=== PATIENT | male | born 1990 | race Caucasian/White ===

== ENCOUNTER → 2018-03-18 11:09 | Outpatient (CLI) | payer OTHER, SELFPAY ==
--- NOTE | 2018-03-18 11:16 | CT_ITS ---
CT abdomen pelvis wo con INDICATION: : LEFT SIDED LOW BACK PAIN ORDERING PHYSICIAN: John Donaldson MD PATIENT AGE: 28 years COMPARISON: June 2014 CT abdomen TECHNIQUE: No oral nor IV contrast utilized Axial images obtained with sagittal and coronal reformats. All CT scans at the facility use one or more dose reduction, viz: automated exposure control, ma/kV adjustment per patient size (including targeted exams where dose is matched to indication, i.e. head), or iterative reconstruction technique. FINDINGS: Lung bases. Clear No acute findings. Heart normal size. Abdomen/pelvis. Lack of oral and IV contrast decreases sensitivity. Liver. A 2.2 cm diameter area at medial right lobe, just superior to the gallbladder fossa is again noted & has not changed significantly since 2013. It measures soft tissue density and is not a cyst. Perhaps 2 mm wider on coronal view overall fairly stable on other views overall reflecting its indolent/benign nature. Possible hemangioma in this younger age patient.. Postcontrast CT imaging protocol could fully confirm if so desired but its fairly stable appearance 2013 is reassuring. Ultrasound may be less definitive but can be supportive of hemangioma diagnosis as well Otherwise the liver is unremarkable on this noncontrast study. The gallbladder shows no gallstones. No biliary ductal dilatation. Pancreas unremarkable but stable. Adrenals unremarkable. tract. Again barely stable pattern of punctate nonobstructive calculi in both kidneys. Right kidney: Largest 6 mm x 3 mm mm calculus upper pole calyx.. Other small roughly 3 mm or less calculi upper pole and lower pole. Cluster of 3 tiny calculi lower pole Left kidney. Several small less than 3 mm punctate calculi involving the upper, mid and lower portion left kidney. No ureteral dilatation Pelvis. Bladder unremarkable. Slightly generous prostate measuring 5.1 cm transverse. Seminal vesicles unremarkable. No pelvic adenopathy or mass or fluid. GI tract. No evidence of appendicitis. Generous stool at the right colon with moderate gaseous transverse colon with minimal stool left colon. Upper normal wall thickness of the descending colon most likely reflects lack of distention Small bowel. Normal caliber unremarkable. No mesenteric or retroperitoneal adenopathy.. Osseous structures. Unremarkable except to note that there is a transitional vertebra at lumbosacral only four nonrib-bearing lumbar vertebra above this IMPRESSION 1. numerous nonobstructive punctate calculi are again seen in both kidneys largest is a 6 mm x 3 mm calculus at upper pole right kidney again seen but with numerous others are smaller measuring roughly 3 mm or less . These are not changed significantly since 2013 2. No acute findings in the abdomen or pelvis . No current obstructive uropathy evident. No findings to account for the left lower quadrant pain 3. The 3.2 cm wide x 2.2 cm low-density area at the gallbladder just above the gallbladder fossa. The fairly stable in overall size, only Perhaps incrementally wider on coronal view. Relative stable character reflects its benign/indolent character. Possible hemangioma. .
== END ==
PROVIDERS: PCP Internal Medicine Adolescent Medicine; Visit Provider Internal Medicine Adolescent Medicine
DX: M54.5 Low back pain (principal)
CPT/HCPCS: 74176

== ENCOUNTER → 2018-05-07 11:38 | Outpatient (CLI) | payer OTHER, SELFPAY ==
--- NOTE | 2018-05-07 11:41 | XR_ITS ---
XR KUB HISTORY: ITS.REASON: Kidney Stones ORDERING PHYSICIAN: Marcial Garcia MD PATIENT AGE: 28 years COMPARISON: 03/18/2018 ct scan FINDINGS: The bowel gas pattern is unremarkable. No obvious obstruction.. Previous CT scan demonstrated multiple bilateral renal calculi. Stool overlies both kidneys and may obscure underlying renal calculi. A 2 mm density is present in the central aspect of the left kidney medially may be due to small stone. No obvious ureteral calculi. No acute bony anomalies. There is a mild amount retained colonic feces. IMPRESSION: Kidneys are of scattered by overlying stool. Suspect at least one small stone in the mid aspect of the left kidney
[2018-05-17 11:23] LABS: Calcium phosphate 10 % (.)
[2018-05-17 18:36] LABS: Specimen Type Comment: (.)
== END ==
PROVIDERS: PCP Internal Medicine Adolescent Medicine; Visit Provider Urology
DX: N20.0 Calculus of kidney (principal)
CPT/HCPCS: 74018; 82370

== ENCOUNTER → 2018-08-06 14:21 | Outpatient (CLI) | payer OTHER, SELFPAY ==
--- NOTE | 2018-08-06 14:23 | XR_ITS ---
XR KUB HISTORY: ITS.REASON: KIDNEY STONES ORDERING PHYSICIAN: Marcial Garcia MD PATIENT AGE: 28 years COMPARISON: 03/18/2018 FINDINGS: Faint calculi are present over the lower pole the right kidney in the mid polar region of the left kidney. No ureteral calculi . No acute bony anomalies. IMPRESSION: Small bilateral renal calculi
== END ==
PROVIDERS: PCP Internal Medicine Adolescent Medicine; Visit Provider Urology
DX: N20.0 Calculus of kidney (principal)
CPT/HCPCS: 74018

== ENCOUNTER 2019-01-14 14:35 | Outpatient (CLI) | payer OTHER, SELFPAY ==
[2019-01-14 14:50] VITALS: BMI 24.3
== END 2019-01-14 14:52 | disposition home or self-care (01) ==
LOC: UTC.OUT 14:36
PROVIDERS: Visit Provider Nurse Practitioner Family
DX: Z23 Encounter for immunization (principal)

== ENCOUNTER → 2021-04-05 10:47 | Outpatient (CLI) | payer OTHER, SELFPAY ==
[2021-04-05 10:59] LABS: Coronavirus 19, PCR Not Detected (NotDetected); Influenza A, PCR Not Detected (NotDetected); Influenza B, PCR Not Detected (NotDetected)
== END ==
PROVIDERS: PCP Internal Medicine Adolescent Medicine; Visit Provider Nurse Practitioner Family
DX: Z20.822 Contact with and (suspected) exposure to COVID-19 (principal)
CPT/HCPCS: U0003

== ENCOUNTER 2021-08-27 19:45 | Emergency (ER) | payer OTHER, SELFPAY ==
[2021-08-27 19:57] VITALS: BP 133/96; PULSE 84; RESP 18; TEMP 36.6; O2SAT 98; BMI 25.7
--- NOTE | 2021-08-27 20:00 | HMH.EDUTC ---
[facility] [place] Clinical Impression: Exposure to COVID-19 virus Disposition: Home, Self-Care Condition on Discharge: Good Instructions: DI for COVID-19 (Suspected or Confirmed ), Preventing the Spread of Coronavirus Discharge Instructions Additional Instructions: Drink plenty of fluids. Take tylenol for pain or fever. Return if you begin to have difficulty breathing. Follow up with your regular doctor. GO TO THE ER FOR ANY WORSENING SYMPTOMS Quarantine until you know the results of your covid-19 test. Notify your school or workplace of your results and follow their instructions regarding return to work/school. Referrals: John Donaldson MD [Primary Care Provider] - Time of Disposition: 20:01 Medical Decision Making - Medical Records Medical records reviewed: No: I reviewed the patient's medical records. - Brennan Inquiry Pt receiving controlled substance: No Vital Signs: 08/27/21 19:57 08/27/21 20:05 Temperature 97.9 F 97.9 F Temperature Source Oral Pulse Rate 84 Pulse Rate [Left] 84 Respiratory Rate 18 18 Blood Pressure 133/96 H Blood Pressure [Right Arm] 133/96 H Blood Pressure Mean [Right Arm] 108 02 Sat by Pulse Oximetry 98 [facility] [place] - General Stated complaint: covid test Time Seen by Provider: 08/27/21 20:00 - History of Present Illness Provider Complaint: He is here needing a covid test. - Related Data Home Medications Medication Instructions Recorded Confirmed hydrocodone 7.5 mg-ibuprofen 200 1 tab PO TID 03/26/18 08/06/18 mg tablet ibuprofen 400 mg tablet 400 mg PO QID PRN 03/26/18 08/06/18 promethazine 25 mg/mL injection 25 mg IM Q6H PRN 03/26/18 08/06/18 solution tamsulosin 0.4 mg capsule 0.4 mg PO DAILY 03/26/18 08/06/18 Allergies Allergy/AdvReac Type Severity Reaction Status Date / Time SULFA (SULFONAMIDE) Allergy Unknown Uncoded 08/06/18 14:50 [facility] History - Hepatitis A Screen Attestation statement:: This patient has been screened for Hepatitis A risk factors. I have reviewed the patient's past medical history: Yes Other Surgeries: Yes: Other Amputation: No Fractures: No Comment: kidney stones removed X 2 - Social History Smoking Status: Never smoker Alcohol Intake: never Substance Use Type: denies use Occupational Status: employed Family Hx:: No significant family history ROS Obtained: Yes All systems reviewed & no additional complaints - Constitutional Constitutional: Reports system reviewed and no additional complaints, except as docu - Eyes Eyes: Reports system reviewed and no additional complaints, except as docu - ENT Ears, Nose, Mouth, and Throat: Reports system reviewed and no additional complaints, except as docu - Cardiovascular Cardiovascular: Reports system reviewed and no additional complaints, except as docu - Respiratory Respiratory: Reports system reviewed and no additional complaints, except as docu - Gastrointestinal Gastrointestingal: Reports: system reviewed and no additional complaints, except as docu Physical Exam - General General appearance: alert, in no apparent distress - Head Head exam: atraumatic, normocephalic, normal inspection - Eye Eye exam: Present: normal appearance, PERRL, EOMI - ENT ENT exam: Present: normal exam, normal oropharynx, mucous membranes moist, TM's normal bilaterally, normal external ear exam - Neck Neck exam: Present: normal inspection, full ROM, trachea midline. Absent: meningismus, lymphadenopathy - Chest Chest inspection: Present: normal inspection, symmetric chest wall rise. Absent: tenderness - Respiratory Respiratory exam: Present: normal lung sounds bilaterally. Absent: respiratory distress - Cardiovascular Cardiovascular exam: Present: regular rate, normal rhythm. Absent: JVD - Abdominal Exam Abdominal exam: Present: soft, normal bowel sounds. Absent: distention, tenderness, guarding - Extremities Exam Extremities exam: P
[2021-08-27 20:05] VITALS: BP 133/96; PULSE 84; RESP 18; TEMP 36.6
== END 2021-08-27 20:06 | disposition home or self-care (01) ==
PROVIDERS: Emergency Provider Nurse Practitioner Family; PCP Internal Medicine Adolescent Medicine
DX: Z20.822 Contact with and (suspected) exposure to COVID-19 (principal); R05.1 Acute cough; R09.81 Nasal congestion; R53.1 Weakness
CPT/HCPCS: 99202; C9803; G0463; U0003; U0005

== ENCOUNTER → 2021-08-29 09:45 | Outpatient (CLI) | payer OTHER, SELFPAY ==
[2021-08-29 20:38] LABS: Covid-19 Nasal PCR Sendout Lex NOT DETECTED
== END ==
PROVIDERS: Visit Provider Nurse Practitioner
DX: Z20.822 Contact with and (suspected) exposure to COVID-19 (principal)
CPT/HCPCS: C9803; U0004; U0005

== ENCOUNTER 2022-09-26 10:50 | Outpatient (CLI) | payer OTHER, SELFPAY ==
[2022-09-26 11:21] VITALS: BP 125/97; PULSE 94; RESP 18; O2SAT 96
== END 2022-09-26 11:08 | disposition home or self-care (01) ==
LOC: INF 10:51
PROVIDERS: PCP Internal Medicine Adolescent Medicine; Visit Provider Nurse Practitioner
DX: J06.9 Acute upper respiratory infection, unspecified (principal)
CPT/HCPCS: 96372; J0696

== ENCOUNTER 2025-03-10 08:05 | Outpatient (CLI) | payer OTHER, SELFPAY ==
--- OUTSIDE RECORDS SUMMARY | 2024-11-01 17:30 | XMS_ITS ---
Author Organization [facility] Address [address] [place] [address] Care Team Providers Care Clinical Training Specialist Name Role Phone John Donaldson Primary Care Provider Migration, Provider Unavailable Unavailable Allergies Allergen (clinical drug ingredient) Drug/Non Drug Allergy documented on EMR Reaction Allergy Type Onset Date Status SULFA (uncoded) Unknown Allergy Acti ve REASON FOR VISIT Multum To Medispan Conversion Encounter Encounters Encounter Location Date Provider Diagnosis [facility] [address] [place] [address] 11/01/2024 Provider Migration Plan Of Treatment No Information Progress Notes * JEAN CLAUDEGustavo TDOB:[birth year] (35 yo M)Acc No.[id number]:11/01/2024 Patient: Gustavo MENARD Provider: Kiersten mendez Migration :1990 A ge:34 Y S ex:Male Date:11/01/2024 [facility] [id number] Pcp:John Donaldson Subjective: * Chief Complaints: * 1 . Multum To Medispan Conversion Encounter. * Medical History: * Allergies: S ULFA. Objective: * Vitals: Assessment: Plan: * Treatment: * * Electronic signature of Prov ider Migration on 03/10/2025 at 08:10 AM EDT Sign off status: Pending * Provider: Kiersten Lundy Date: 0 11/01/2024 Generated for Griffin ni/Jovita/Mallyitting on: 0 03/10/2025 08:10 AM EDT
--- OUTSIDE RECORDS SUMMARY | 2025-03-09 10:24 | XMS_ITS ---
Author Organization [facility] Address [address] [place] [address] Care Team Providers Care Contact Assembler Name Role Phone Mptracee John Primary Care Provider REASON FOR VISIT Lab order Encounters Encounter Location Date Provider Diagnosis [facility] [address] [place] [address] 03/09/2025 John Mptracee Family history of hyperlipidemia Z83.438 Assessments Encounter Date Diagnosis (ICD Code) Assessment Notes Treatment Notes Treatment Clinical Notes Section Notes 03/09/2025 Family history of hyperlipidemia (ICD-10 - Z83.438) Plan Of Treatment Pending Test Test Name Order Date M-Complete Blood Count Auto Diff 025 M-Comprehensive Metabolic Panel 03/09/20 25 M-Hemoglobin A1C 03/09/2025 M-Lipid Panel 03/09/2025 Progress Notes * KATELYN Gustavo TDOB:[birth year] (35 yo M)Acc No.[id number]:03/09/2025 Patient: Gustavo MENARD :1990 A ge:35 Y S ex:Male Address:[place], [address] Subjective: * Chief Complaints: * L ab order * Medical History: * Surgical History: * Hospitalization/Major Diagno stic Procedure: * Medications: Objective: * Vitals: * Physical Examination: Assessment: * Assessment: 1. F amily history of hyperlipidemia - Z83.438 (Primary) Plan: * Treatment: * Procedure Codes: * true * Date: Generated for Griffin ni/Jovita/Nallely on: 0 03/10/2025 08:10 AM EDT
--- OUTSIDE RECORDS SUMMARY | 2025-03-10 08:10 | XMS_ITS | Patient Health Record ---
Author Organization [facility] Address [address] [place] [address] Care Team Providers Care Last Cleaner Name Role Phone John Donaldson Primary Care Provider Migration, Provider Unavailable Unavailable Allergies Allergen (clinical drug ingredient) Drug/Non Drug Allergy documented on EMR Reaction Allergy Type Onset Date Status SULFA (uncoded) Unknown Allergy Acti ve Reason For Referral No Information Social History Tobacco Use: Social History Observation Description Date Details (start date - stop date) Never Smoker NA - NA Smoking: Question Answer Notes Are you a: nonsmoker Encounters Encounter Location Date Provider Diagnosis [facility] [address] [place] [address] 11/01/2024 Provider Migration [facility] [address] [facility] [address] [place] [address] 03/09/2025 John Donaldson Family history of hyperlipidemia Z83.438 Assessments Encounter Date Diagnosis (ICD Code) Assessment Notes Treatment Notes Treatment Clinical Notes Section Notes 03/09/2025 Family history of hyperlipidemia (ICD-10 - Z83.438) Plan Of Treatment Pending Test Test Name Order Date Rapid Flu, A 10/10/2018 Rapid Flu, B 10/10/2018 M-Complete Blood Count Auto Diff 025 M-Comprehensive Metabolic Panel 03/09/20 25 M-Hemoglobin A1C 03/09/2025 M-Lipid Panel 03/09/2025 Insurance Providers Payer Name Payer Address Payer Phone Subscriber Number Group Number Insured Name Patient Relationship to Insured Coverage Start Date Coverage End Date [employer] [address] [id number] [place] [address] [id number] [phone] Gustavo Zepeda Self - patient is the insured Medical (General) History Medical History History ICD Code asthma-mild Surgical History Surgery Date(Month/Year) kidney stone removal 2014
[2025-03-10 08:30] LABS: Hematocrit 42.5 % (42.0-52.0); Hemoglobin 14.1 g/dL (14.1-18.0); Immature Granulocytes % 0.2 %; Mean Corpuscular HGB Conc 33.2 g/dL (31.8-35.4); Mean Corpuscular Hemoglobin 27.9 pg (27.0-31.2); Mean Corpuscular Volume 84.0 fl (80-94); Nucleated Red Blood Cells % 0 %; Platelet Count 230 K/mm3 (142-424); Red Blood Count 5.06 M/mm3 (4.60-6.20); Red Cell Distribution Width-SD 37.4 fL; White Blood Count 4.2 K/mm3 (4.8-10.8)
[2025-03-10 09:06] LABS: Hemoglobin A1C 4.9 % (4.0-6.0)
[2025-03-10 09:16] LABS: Alanine Aminotransferase 30 U/L (12-78); Albumin Level 4.4 g/dl (3.5-5.0); Albumin/Globulin Ratio 2.1 (1.1-1.8); Alkaline Phosphatase 59 U/L (38-126); Anion Gap 11.2 mEq/L (5-15); Aspartate Amino Transferase 27 U/L (17-59); Bilirubin,Total 0.4 mg/dl (0.2-1.3); Blood Urea Nitrogen 8 mg/dl (9-20); Calcium 9.3 mg/dl (8.4-10.2); Carbon Dioxide 25 mmol/L (22.0-30.0); Chloride 107 mmol/L (98-107); Cholesterol 190 mg/dl (140-200); Creatinine,Serum 0.80 mg/dl (0.66-1.25); Estimated Glomerular Filt Rate 109 ml/min (>60); GFR (African American) 132 ML/MIN (>60); Globulin 2.1 g/dL (1.3-3.2); Glucose 87 mg/dl (74-100); HDL Cholesterol 43 mg/dl (40-60); Potassium 4.2 mmoL/L (3.5-5.1); Sodium 139 mmol/L (136-145); Total Protein,Serum 6.5 g/dl (6.3-8.2); Triglycerides 89 mg/dl (30-150)
== END 2025-03-10 23:59 | disposition home or self-care (01) ==
LOC: LAB 08:07
PROVIDERS: PCP Internal Medicine Adolescent Medicine; Visit Provider Internal Medicine Adolescent Medicine
DX: Z04.89 Encounter for examination and observation for other specified reasons (principal); Z83.438 Family history of other disorder of lipoprotein metabolism and other lipidemia
CPT/HCPCS: 36415; 80053; 80061; 83036; 85025